=== PATIENT | female | born 1970 | race African-American/Black ===

== ENCOUNTER 2017-11-30 08:44 | Emergency (ER) | payer SELFPAY ==
[2017-11-30] MEDS ORDERED: Ketorolac Tromethamine 60 MG/2 ML VIAL ONE (09:50)
--- NOTE | 2017-11-30 11:19 | RAD ---
LUMBAR SPINE RADIOGRAPH THREE VIEWS: Date: 11-30-17 Provided Clinical History: Back pain status post injury. FINDINGS: Lumbar alignment appears normal. Vertebral body heights appear preserved. Pedicles appear intact. IMPRESSION: No evidence for an acute osseous abnormality. If there is persistent clinical concern, conservative m anagement and follow up imaging advised. POS: [facility]
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
--- NOTE | 2017-11-30 11:49 | CT ---
CT FACIAL BONES: Date: 11/30/17 PROVIDED CLINICAL HISTORY: Jaw pain. FINDINGS: There is no evidence for fracture. There is anterior translation of the mandibular condyles within th eir fossa in the closed mouth position. While this is nonspecific, abnormalities of the TMJ articular discs could be considered. There is no dinah dislocation. Prominent periodontal disease. Paranasal s inuses appear clear. Globes and other orbital contents appear normal. IMPRESSION: 1. No evidence for fracture. 2. Anterior translation of mandibular condyles in the closed mouth position may reflect abnormalitie s of the articular discs. Consider nonemergent dental surgical consultation. POS: RISA
== END 2017-11-30 10:20 | disposition home or self-care (01) ==
LOC: ERS 08:44
DX: R68.84 Jaw pain (principal); M54.2 Cervicalgia; M54.5 Low back pain; Z79.899 Other long term (current) drug therapy; V49.9XXA Car occupant (driver) (passenger) injured in unspecified traffic accident, initial encounter
CPT/HCPCS: 70486; 72100; 72125; 96372; J1885

== ENCOUNTER 2018-02-18 06:04 | Emergency (ER) | payer SELFPAY ==
[2018-02-18 07:00] LABS: #Eosinphils 0.2 thou/uL (0.0-0.7); #Lymphocytes 1.9 thou/uL (1.20-3.40); #Monocytes 0.6 thou/uL (0.11-0.59); #Neutrophils 10.1 thou/uL (1.40-6.50); %Basophils 0.1 % (0.0-1.0); %Eosinophils 1.4 % (0.0-10.0); %Lymphocytes 14.8 % (21.0-51.0); %Monocytes 4.8 % (0.0-10.0); %Neutrophils 78.9 % (42.0-75.0); Hemoglobin 13.8 g/dL (12.0-16.0); Mean Corpuscular HGB CONC 33.9 g/dL (32.0-36.0); Mean Corpuscular Hemoglobin 33.6 pg (27.0-31.0); Mean Corpuscular Volume 98.9 fL (78.0-98.0); Mean Platelet Volume 7.3 fL (7.4-10.4); Platelet Count 238 thou/uL (130-400); RBC Distribution Width 11.7 % (11.5-14.5); Red Blood Cell (RBC) Count 4.11 mill/uL (4.20-5.40); White Blood Cell (WBC) Count 12.8 thou/uL (4.8-10.8)
[2018-02-18 07:25] LABS: ALT (SGPT) 13 U/L (8-55); AST (SGOT) 16 U/L (5-34); Alkaline Phosphatase 94 U/L (40-150); Anion Gap 11 mmol/L (10-20); BUN (Urea Nitrogen) 10 mg/dL (7.0-18.7); Bilirubin, Total 0.3 mg/dL (0.2-1.2); Calc. Creatinine Clearance 0 mL/min (70-130); Calcium 9.2 mg/dL (7.8-10.44); Carbon Dioxide 24 mmol/L (22-29); Chloride 104 mmol/L (98-107); Estimated GFR-MDRD Greater than 90; Globulin 3.4 g/dL (2.4-3.5); Glucose 98 mg/dL (70-105); Potassium 4.3 mmol/L (3.5-5.1); Protein, Total 7.4 g/dL (6.0-8.3); Sodium 135 mmol/L (136-145)
[2018-02-18 08:58] LABS: Bilirubin Negative (Negative); Blood, Urine Negative (Negative); Clarity CLEAR (Clear); Glucose, Urine (Dipstick) Negative (Negative); Leukocyte Negative (Negative); Nitrite Negative (Negative); Protein, Urine (Dipstick) Negative (Neg-Trace); Specific Gravity, Urine 1.021 (1.002-1.036); Urobilinogen 0.2 mg/dL (0.2-1.0); pH, Urine 7.5 (5.0-9.0)
[2018-02-18] MEDS ORDERED: FOSPHENYTOIN SODIUM IVPB SCH (09:45)
[2018-02-18] MEDS ORDERED: SODIUM CHLORIDE IVPB SCH (09:45)
[2018-02-18] MEDS ORDERED: ADMIXTURE FEE IVPB SCH (09:45)
== END 2018-02-18 11:54 | disposition home or self-care (01) ==
LOC: ERS 06:04
DX: R56.9 Unspecified convulsions (principal); Z79.899 Other long term (current) drug therapy
CPT/HCPCS: 36415; 80053; 80185; 81003; 84146; 85025; 96365; J7050; Q2009

== ENCOUNTER 2020-07-26 00:41 | Emergency (ER) | payer SELFPAY | END 2020-07-26 02:24 | disposition home or self-care (01) | LOC: ERS 00:41 | DX: R06.02 Shortness of breath (principal) | CPT/HCPCS: 71045; 93005 ==

== ENCOUNTER 2023-05-29 08:19 | Emergency (ER) | payer SELFPAY ==
[2023-05-29 08:48] LABS: #Monocytes 0.4 thou/uL (0.11-0.59); #Neutrophils 13.3 thou/uL (1.40-6.50); %Basophils 0.1 % (0.0-1.0); %Eosinophils 0.1 % (0.0-10.0); %Monocytes 2.7 % (0.0-10.0); %Neutrophils 89.4 % (42.0-75.0); Hematocrit 39.9 % (36.0-47.0); Hemoglobin 13.3 g/dL (12.0-16.0); Mean Corpuscular HGB CONC 33.3 g/dL (32.0-36.0); Mean Corpuscular Hemoglobin 32.6 pg (27.0-31.0); Mean Corpuscular Volume 97.8 fl (78.0-98.0); Mean Platelet Volume 9.6 fL (7.4-10.4); Platelet Count 236 10x3/uL (130-400); RBC Distribution Width 12.4 % (11.5-14.5); Red Blood Cell (RBC) Count 4.08 mill/uL (4.20-5.40); White Blood Cell (WBC) Count 14.8 10x3/uL (4.8-10.8)
[2023-05-29] MEDS ORDERED: Ondansetron PF 4 MG/2 ML Vial ONE (08:55)
[2023-05-29 09:01] LABS: BHCG - Serum Negative (NEGATIVE); Pregs Control Background? CLEAR/WHITE (CLR/WHITE); Pregs Control Bar Appear? YES (CONTROL BAR)
[2023-05-29 09:08] LABS: Dilantin 5.2 ug/mL (10.0-20.0)
[2023-05-29 09:10] LABS: ALT (SGPT) 25 U/L (8-55); AST (SGOT) 16 U/L (5-34); Albumin 4.4 g/dL (3.5-5.0); Alkaline Phosphatase 109 U/L (40-110); Anion Gap 11 mmol/L (10-20); BUN (Urea Nitrogen) 8 mg/dL (7.0-18.7); Bilirubin, Total 0.2 mg/dL (0.2-1.2); Calc. Creatinine Clearance 0 mL/min (70-130); Calcium 8.8 mg/dL (7.8-10.44); Carbon Dioxide 27 mmol/L (22-29); Chloride 102 mmol/L (98-107); Estimated GFR 107; Globulin 3.4 g/dL (2.4-3.5); Glucose 113 mg/dL (70-105); Magnesium 1.8 mg/dL (1.6-2.6); Potassium 3.9 mmol/L (3.5-5.1); Protein, Total 7.8 g/dL (6.0-8.3); Sodium 136 mmol/L (136-145)
== END 2023-05-29 09:42 | disposition home or self-care (01) ==
LOC: ERS 08:19
DX: G40.409 Other generalized epilepsy and epileptic syndromes, not intractable, without status epilepticus (principal); Z79.899 Other long term (current) drug therapy
CPT/HCPCS: 36415; 80053; 80185; 83735; 84703; 85025; 93005; 94760; 96374; J2405

== ENCOUNTER 2024-02-10 05:45 | Observation (INO) | payer BC ==
[2024-02-10] MEDS ORDERED: Lorazepam 2 MG/ML VIAL ONE (05:49)
[2024-02-10 06:22] LABS: #Basophils Less than 0.03 10x3/uL (0.0-0.2); %Basophils 0.3 % (0.0-1.0); %Eosinophils 4.2 % (0.0-10.0); %Lymphocytes 23.7 % (21.0-51.0); %Monocytes 10.2 % (0.0-10.0); %Neutrophils 61.5 % (42.0-75.0); Hematocrit 36.9 % (36.0-47.0); Mean Corpuscular HGB CONC 32.5 g/dL (32.0-36.0); Mean Corpuscular Hemoglobin 32.3 pg (27.0-31.0); Mean Corpuscular Volume 99.2 fL (78.0-98.0); Mean Platelet Volume 9.5 fL (7.4-10.4); Platelet Count 218 10x3/uL (130-400); RBC Distribution Width 12.7 % (11.5-14.5); Red Blood Cell (RBC) Count 3.72 mill/uL (4.20-5.40)
[2024-02-10 06:35] LABS: Dilantin 3.5 ug/mL (10.0-20.0)
[2024-02-10 06:39] LABS: ALT (SGPT) 15 U/L (8-55); AST (SGOT) 12 U/L (5-34); Albumin 3.4 g/dL (3.5-5.0); Alkaline Phosphatase 97 U/L (40-110); Anion Gap 9 mmol/L (10-20); BUN (Urea Nitrogen) 7 mg/dL (9.8-20.1); Bilirubin, Total 0.3 mg/dL (0.2-1.2); Calc. Creatinine Clearance 0 mL/min (70-130); Calcium 8.8 mg/dL (7.8-10.44); Carbon Dioxide 30 mmol/L (22-29); Chloride 105 mmol/L (98-107); Estimated GFR 92; Globulin 3.4 g/dL (2.4-3.5); Glucose 92 mg/dL (70-105); Protein, Total 6.8 g/dL (6.0-8.3); Sodium 140 mmol/L (136-145)
[2024-02-10] MEDS ORDERED: levETIRAcetam 500 MG (5 mL) VIAL ONE (08:08)
[2024-02-10] MEDS ORDERED: Lorazepam 2 MG/ML VIAL SLOW IVP PRN (09:39)
[2024-02-10] MEDS ORDERED: Acetaminophen 650 MG Suppository PR PRN (09:39)
[2024-02-10] MEDS ORDERED: Calcium Carbonate 500 MG ChewTAB PO PRN (09:39)
[2024-02-10] MEDS ORDERED: Senokot S 8.6-50 MG TAB PO PRN (09:39)
[2024-02-10] MEDS ORDERED: Ondansetron PF 4 MG/2 ML Vial IVP PRN (09:39)
[2024-02-10] MEDS ORDERED: Ondansetron ODT 4 MG TAB PO PRN (09:39)
[2024-02-10] MEDS ORDERED: Magnevist 469MG/ML 20 ML VIAL ONE (11:15)
[2024-02-10] MEDS ORDERED: Phenytoin 100 MG (4 mL) UDCUP PO SCH (13:00)
[2024-02-10] MEDS ORDERED: Acetaminophen 325 MG TAB ONE (18:07)
[2024-02-10] MEDS: Acetaminophen 325 MG TAB PO SCH (18:09)
[2024-02-10] MEDS ORDERED: Phenytoin Extended Release 100 MG CAP ONE (21:39)
[2024-02-10] MEDS ORDERED: Famotidine 20 MG TAB ONE (21:40)
[2024-02-10] MEDS ORDERED: levETIRAcetam 500 MG TAB ONE (21:40)
[2024-02-10] MEDS: Famotidine 20 MG TAB PO SCH (21:46)
[2024-02-10] MEDS: levETIRAcetam 500 MG TAB PO SCH (21:46)
[2024-02-10] MEDS: Phenytoin Extended Release 100 MG CAP PO SCH (21:49)
[2024-02-10 22:26] VITALS: BMI 36.6
[2024-02-11 05:47] LABS: Anion Gap 12 mmol/L (10-20); BUN (Urea Nitrogen) 8 mg/dL (9.8-20.1); Calc. Creatinine Clearance 169 mL/min (70-130); Carbon Dioxide 23 mmol/L (22-29); Chloride 107 mmol/L (98-107); Estimated GFR 107; Glucose 86 mg/dL (70-105); Potassium 3.9 mmol/L (3.5-5.1); Sodium 138 mmol/L (136-145)
[2024-02-11 06:21] LABS: Calcium 8.7 mg/dL (7.8-10.44)
[2024-02-11 08:47] LABS: #Basophils 0.03 10x3/uL (0.0-0.2); %Basophils 0.4 % (0.0-1.0); %Eosinophils 5.4 % (0.0-10.0); %Monocytes 8.3 % (0.0-10.0); %Neutrophils 62.7 % (42.0-75.0); Hematocrit 37.8 % (36.0-47.0); Hemoglobin 12.6 g/dL (12.0-16.0); Mean Corpuscular HGB CONC 33.3 g/dL (32.0-36.0); Mean Corpuscular Hemoglobin 32.6 pg (27.0-31.0); Mean Corpuscular Volume 97.7 fL (78.0-98.0); Mean Platelet Volume 10.1 fL (7.4-10.4); Platelet Count 213 10x3/uL (130-400); RBC Distribution Width 12.7 % (11.5-14.5); Red Blood Cell (RBC) Count 3.87 mill/uL (4.20-5.40)
[2024-02-11] MEDS: Phenytoin Extended Release 100 MG CAP PO SCH (09:13)
[2024-02-11 13:26] LABS: Dilantin 4.8 ug/mL (10.0-20.0)
[2024-02-12 09:21] VITALS: BP 119/78; TEMP 97.6
== END 2024-02-12 12:45 | disposition home or self-care (01) ==
LOC: ERS 05:45 → ERHOLD 08:45 → 2SW 22:10
PROVIDERS: ADMIT Internal Medicine; ATTEND Internal Medicine
DX: G40.919 Epilepsy, unspecified, intractable, without status epilepticus (principal); R53.1 Weakness; Z79.899 Other long term (current) drug therapy
CPT/HCPCS: 36415; 70450; 70553; 76376; 80048; 80053; 80177; 80185; 83735; 85025; 93005; 95700; 95711; 96374; A9579; G0378; J1953; J2060